=== PATIENT | female | born 1950 | race Caucasian/White ===

== ENCOUNTER 2019-08-07 10:48 | Emergency (ER) | payer OTHER ==
[~2019-08-07] VITALS: Ht 149.9 cm; Wt 83.0 kg
[2019-08-07 11:00] VITALS: BP 148/76
== END 2019-08-07 13:25 | disposition home or self-care (01) ==
LOC: ER 10:51
DX: M54.5 Low back pain (principal); I10 Essential (primary) hypertension
CPT/HCPCS: 72110-TC